=== PATIENT | female | born 1990 | race African-American/Black ===

== ENCOUNTER 2016-11-15 16:14 | Emergency (ER) | payer MEDICAID ==
[~2016-11-15] VITALS: Ht 149.9 cm; Wt 50.0 kg
[2016-11-15] MEDS ORDERED: ACETAMINOPHEN 325MG TABLET PO ONE (19:15)
[2016-11-15 19:31] VITALS: BP 110/69
== END 2016-11-15 20:19 | disposition home or self-care (01) ==
LOC: ER 18:21
DX: B34.9 Viral infection, unspecified (principal)
CPT/HCPCS: 99282

== ENCOUNTER 2018-10-03 13:46 | Emergency (ER) | payer MEDICAID, MEDICARE ==
[~2018-10-03] VITALS: Ht 149.9 cm; Wt 49.9 kg
[2018-10-03 13:55] VITALS: BP 126/76
== END 2018-10-03 17:48 | disposition left against medical advice (07) ==
LOC: ER 13:46
DX: Z53.21 Procedure and treatment not carried out due to patient leaving prior to being seen by health care provider (principal)

== ENCOUNTER 2021-08-15 02:21 | Emergency (ER) | payer MEDICAID ==
[~2021-08-15] VITALS: Ht 149.9 cm; Wt 63.6 kg
[2021-08-15 02:27] VITALS: BP 115/62
[2021-08-15 03:02] LABS: CLARITY URINE CLOUDY (CLEAR); COLOR URINE YELLOW (YELLOW); KETONES URINE NEGATIVE (NEGATIVE); LEUKOCYTE ESTERASE URINE 1+ (NEGATIVE); NITRITE URINE POSITIVE (NEGATIVE); OCCULT BLOOD URINE 2+ (NEGATIVE); PH URINE 5.5 (4.5-8.0); PROTEIN URINE 2+ (NEGATIVE); SPECIFIC GRAVITY URINE 1.025 (1.005-1.030); UROBILINOGEN URINE 0.2 E.U./dL (0.2-1.0)
[2021-08-15] MEDS ORDERED: ACET-2708 PO (04:09)
[2021-08-15] MEDS ORDERED: FLUC150T5 PO (04:09)
[2021-08-15] MEDS ORDERED: SULF1TAB48 PO (04:09)
== END 2021-08-15 05:03 | disposition home or self-care (01) ==
LOC: ER 02:21
DX: N39.0 Urinary tract infection, site not specified (principal)
CPT/HCPCS: 81003; 81025; 87077; 87186; 99283